=== PATIENT | male | born 1990 | race Caucasian/White ===

== ENCOUNTER 2019-09-13 13:54 | Inpatient (IN) | payer BC ==
[~2019-09-13] VITALS: Ht 180.3 cm; Wt 73.0 kg
[~2019-09-13 13:54] MED LIST: COL100 PO; NORCO1 TA2 PO
[2019-09-13 16:48] LABS: PLATELET COUNT 398 x10^3mcL (130-400); RED CELL DISTRIBUTION WIDTH 12.8 % (11.5-14.5)
[2019-09-13 17:01] LABS: CALCIUM 8.9 mg/dL (8.5-10.1); CARBON DIOXIDE 30.4 mmol/L (21-32); CHLORIDE SERUM 101 mmol/L (98-107); CREATININE SERUM 0.8 mg/dL (0.7-1.3); GFR1 > 60 mL/min; GLUCOSE SERUM 117 mg/dL (74-106); POTASSIUM SERUM 3.3 mmol/L (3.5-5.1); SODIUM SERUM 140 mmol/L (136-145)
[2019-09-13 17:05] LABS: ALBUMIN 4.2 g/dL (3.4-5.0); ALKALINE PHOSPHATASE 94 U/L (46-116); ALT/SGPT 24 U/L (16-63); AMYLASE 55 U/L (25-115); LIPASE 23 IU/L (73-393); TOTAL PROTEIN, SERUM 7.4 g/dL (6.4-8.2)
[2019-09-13 17:20] LABS: AST/SGOT 22 U/L (15-37)
[2019-09-13 17:21] LABS: BAND NEUTROPHIL 3 % (0-10); BASOPHIL 0 % (0-2); MONOCYTE 4 % (0-7); SEGMENTED NEUTROPHILS 89 % (37-75)
[2019-09-13 17:23] LABS: rbc morphology (normal/abnorm) NORMAL (NORMAL)
[2019-09-14] VITALS (11 sets, daily range): BP systolic 117–138; BP diastolic 56–93; Ht 180.3 cm; Wt 73.0 kg
[2019-09-14 06:10] LABS: microscopic required? NO
[2019-09-14 06:25] LABS: PLATELET COUNT 320 x10^3mcL (130-400); RED CELL DISTRIBUTION WIDTH 13.1 % (11.5-14.5)
[2019-09-14 06:46] LABS: CALCIUM 7.8 mg/dL (8.5-10.1); CARBON DIOXIDE 26.3 mmol/L (21-32); CHLORIDE SERUM 104 mmol/L (98-107); CREATININE SERUM 0.8 mg/dL (0.7-1.3); GFR1 > 60 mL/min; GLUCOSE SERUM 138 mg/dL (74-106); MAGNESIUM 1.6 mg/dL (1.8-2.4); PHOSPHOROUS 3.8 mg/dL (2.5-4.9); POTASSIUM SERUM 4.1 mmol/L (3.5-5.1); SODIUM SERUM 137 mmol/L (136-145)
[2019-09-14 07:40] LABS: UA SPECIFIC GRAVITY >=1.030 (1.005-1.035); urine erythrocyte NEGATIVE (NEGATIVE)
[2019-09-14 07:47] LABS: AMPHETAMINE QUAL UR POSITIVE (See below)
[2019-09-14 07:49] LABS: BAND NEUTROPHIL 3 % (0-10); MONOCYTE 3 % (0-7); SEGMENTED NEUTROPHILS 94 % (37-75)
[2019-09-14 07:50] LABS: rbc morphology (normal/abnorm) ABNORMAL (NORMAL)
[2019-09-14 07:51] LABS: PLATELET MORPHOLOGY PLATELETS NORMAL
[2019-09-15 04:55] VITALS: BP 131/82
[2019-09-15 06:36] LABS: CARBON DIOXIDE 29.5 mmol/L (21-32); CHLORIDE SERUM 104 mmol/L (98-107); CREATININE SERUM 0.9 mg/dL (0.7-1.3); GFR1 > 60 mL/min; GLUCOSE SERUM 117 mg/dL (74-106); MAGNESIUM 1.9 mg/dL (1.8-2.4); PHOSPHOROUS 2.6 mg/dL (2.5-4.9); POTASSIUM SERUM 3.6 mmol/L (3.5-5.1); SODIUM SERUM 140 mmol/L (136-145)
[2019-09-15 06:50] LABS: BASOPHIL % 0.2 % (0-2); PLATELET COUNT 322 x10^3mcL (130-400); RED CELL DISTRIBUTION WIDTH 13.7 % (11.5-14.5)
[2019-09-15 08:38] VITALS: BP 133/86
[2019-09-15 11:51] VITALS: BP 149/82
[2019-09-15 16:29] VITALS: BP 126/79
[2019-09-15 20:22] VITALS: BP 133/86
[2019-09-16 04:54] VITALS: BP 133/76
[2019-09-16 06:48] LABS: CALCIUM 8.5 mg/dL (8.5-10.1); CHLORIDE SERUM 102 mmol/L (98-107); CREATININE SERUM 0.8 mg/dL (0.7-1.3); GFR1 > 60 mL/min; GLUCOSE SERUM 119 mg/dL (74-106); MAGNESIUM 2.2 mg/dL (1.8-2.4); POTASSIUM SERUM 3.5 mmol/L (3.5-5.1); SODIUM SERUM 138 mmol/L (136-145)
[2019-09-16 07:12] LABS: PLATELET COUNT 359 x10^3mcL (130-400); RED CELL DISTRIBUTION WIDTH 13.4 % (11.5-14.5)
[2019-09-16 07:19] LABS: BASOPHIL % 0 % (0-2)
[2019-09-16 07:39] VITALS: BP 136/87
[2019-09-16 11:45] VITALS: BP 132/89
[2019-09-16 16:18] VITALS: BP 140/94
[2019-09-16 20:20] VITALS: BP 139/94
[2019-09-17 03:33] VITALS: BP 138/98
[2019-09-17 06:39] LABS: BASOPHIL % 0.1 % (0-2); PLATELET COUNT 375 x10^3mcL (130-400); RED CELL DISTRIBUTION WIDTH 13.4 % (11.5-14.5)
[2019-09-17 07:35] LABS: CALCIUM 8.6 mg/dL (8.5-10.1); CARBON DIOXIDE 27.9 mmol/L (21-32); CHLORIDE SERUM 102 mmol/L (98-107); CREATININE SERUM 0.9 mg/dL (0.7-1.3); GFR1 > 60 mL/min; GLUCOSE SERUM 123 mg/dL (74-106); PHOSPHOROUS 4.5 mg/dL (2.5-4.9); POTASSIUM SERUM 3.7 mmol/L (3.5-5.1); SODIUM SERUM 138 mmol/L (136-145)
[2019-09-17 08:01] VITALS: BP 121/77
[2019-09-17 11:58] VITALS: BP 137/89
[2019-09-17 15:59] VITALS: BP 145/97
[2019-09-17 19:26] VITALS: BP 133/87
[2019-09-18 05:23] VITALS: BP 121/79
[2019-09-18 06:29] LABS: BASOPHIL % 0.8 % (0-2); PLATELET COUNT 378 x10^3mcL (130-400); RED CELL DISTRIBUTION WIDTH 13.3 % (11.5-14.5)
[2019-09-18 06:47] LABS: CALCIUM 8.1 mg/dL (8.5-10.1); CARBON DIOXIDE 26.9 mmol/L (21-32); CHLORIDE SERUM 106 mmol/L (98-107); CREATININE SERUM 0.8 mg/dL (0.7-1.3); GFR1 > 60 mL/min; GLUCOSE SERUM 96 mg/dL (74-106); SODIUM SERUM 140 mmol/L (136-145)
[2019-09-18 07:51] VITALS: BP 121/84
[2019-09-18 11:48] VITALS: BP 137/93
[2019-09-18 16:09] VITALS: BP 126/87
[2019-09-18 19:21] VITALS: BP 131/86
[2019-09-19 04:31] VITALS: BP 137/91
[2019-09-19 05:28] LABS: BASOPHIL % 0.1 % (0-2); PLATELET COUNT 375 x10^3mcL (130-400); RED CELL DISTRIBUTION WIDTH 13.1 % (11.5-14.5)
[2019-09-19 05:30] LABS: CALCIUM 8.1 mg/dL (8.5-10.1); CARBON DIOXIDE 25.3 mmol/L (21-32); CHLORIDE SERUM 106 mmol/L (98-107); CREATININE SERUM 0.8 mg/dL (0.7-1.3); GFR1 > 60 mL/min; GLUCOSE SERUM 102 mg/dL (74-106); POTASSIUM SERUM 3.9 mmol/L (3.5-5.1); SODIUM SERUM 139 mmol/L (136-145)
[2019-09-19 08:07] VITALS: BP 116/86
[2019-09-19 11:50] VITALS: BP 125/80
[2019-09-19 17:01] VITALS: BP 131/87
[2019-09-19 21:23] VITALS: BP 136/82
[2019-09-20 04:57] VITALS: BP 132/87
[2019-09-20 06:47] LABS: CALCIUM 8.2 mg/dL (8.5-10.1); CARBON DIOXIDE 23.6 mmol/L (21-32); CHLORIDE SERUM 104 mmol/L (98-107); CREATININE SERUM 0.9 mg/dL (0.7-1.3); GFR1 > 60 mL/min; GLUCOSE SERUM 104 mg/dL (74-106); POTASSIUM SERUM 3.6 mmol/L (3.5-5.1); SODIUM SERUM 138 mmol/L (136-145)
[2019-09-20 06:48] LABS: BASOPHIL % 0.3 % (0-2); RED CELL DISTRIBUTION WIDTH 13.1 % (11.5-14.5)
[2019-09-20 06:58] LABS: PLATELET COUNT 423 x10^3mcL (130-400)
[2019-09-20 08:33] VITALS: BP 136/87
[2019-09-20 16:31] VITALS: BP 137/87
[2019-09-20 20:52] VITALS: BP 136/89
[2019-09-21 05:07] VITALS: BP 139/95
[2019-09-21 06:33] LABS: BASOPHIL % 0.5 % (0-2); RED CELL DISTRIBUTION WIDTH 13.1 % (11.5-14.5)
[2019-09-21 07:07] LABS: CALCIUM 8.6 mg/dL (8.5-10.1); CARBON DIOXIDE 27.9 mmol/L (21-32); CHLORIDE SERUM 105 mmol/L (98-107); GFR1 > 60 mL/min; GLUCOSE SERUM 104 mg/dL (74-106); MAGNESIUM 2.2 mg/dL (1.8-2.4); POTASSIUM SERUM 3.7 mmol/L (3.5-5.1); SODIUM SERUM 141 mmol/L (136-145)
[2019-09-21 07:25] VITALS: BP 140/86
[2019-09-21 07:33] LABS: PLATELET COUNT 459 x10^3mcL (130-400)
[2019-09-21 15:46] VITALS: BP 143/95
[2019-09-21 20:00] VITALS: BP 127/79
[2019-09-22 05:27] VITALS: BP 119/75
[2019-09-22 06:15] LABS: BASOPHIL % 0.4 % (0-2); RED CELL DISTRIBUTION WIDTH 13.1 % (11.5-14.5)
[2019-09-22 06:19] LABS: PLATELET COUNT 439 x10^3mcL (130-400)
[2019-09-22 06:41] LABS: CALCIUM 8.1 mg/dL (8.5-10.1); CARBON DIOXIDE 24.5 mmol/L (21-32); CHLORIDE SERUM 108 mmol/L (98-107); CREATININE SERUM 0.8 mg/dL (0.7-1.3); GFR1 > 60 mL/min; GLUCOSE SERUM 108 mg/dL (74-106); MAGNESIUM 2.2 mg/dL (1.8-2.4); POTASSIUM SERUM 3.5 mmol/L (3.5-5.1); SODIUM SERUM 143 mmol/L (136-145)
[2019-09-22 07:57] VITALS: BP 143/96
[2019-09-22 12:01] VITALS: BP 148/90
[2019-09-22 16:17] VITALS: BP 142/87
[2019-09-22 19:32] VITALS: BP 134/90
[2019-09-23 04:18] VITALS: BP 127/85
[2019-09-23 06:50] LABS: BASOPHIL % 0.6 % (0-2); RED CELL DISTRIBUTION WIDTH 13.2 % (11.5-14.5)
[2019-09-23 06:54] LABS: CALCIUM 8.1 mg/dL (8.5-10.1); CARBON DIOXIDE 27.9 mmol/L (21-32); CHLORIDE SERUM 105 mmol/L (98-107); CREATININE SERUM 0.9 mg/dL (0.7-1.3); GFR1 > 60 mL/min; POTASSIUM SERUM 3.1 mmol/L (3.5-5.1); SODIUM SERUM 142 mmol/L (136-145)
[2019-09-23 06:57] LABS: PLATELET COUNT 446 x10^3mcL (130-400)
[2019-09-23 07:28] VITALS: BP 132/87
[2019-09-23 08:56] LABS: GLUCOSE SERUM 84 mg/dL (74-106)
[2019-09-24 04:16] VITALS: BP 121/78
[2019-09-24 07:24] LABS: BASOPHIL % 0.7 % (0-2); RED CELL DISTRIBUTION WIDTH 13.1 % (11.5-14.5)
[2019-09-24 07:38] LABS: PLATELET COUNT 422 x10^3mcL (130-400)
[2019-09-24 08:00] LABS: CALCIUM 8.2 mg/dL (8.5-10.1); CARBON DIOXIDE 23.7 mmol/L (21-32); CHLORIDE SERUM 107 mmol/L (98-107); CREATININE SERUM 0.7 mg/dL (0.7-1.3); GFR1 > 60 mL/min; GLUCOSE SERUM 88 mg/dL (74-106); POTASSIUM SERUM 3.2 mmol/L (3.5-5.1); SODIUM SERUM 140 mmol/L (136-145)
[2019-09-24 08:09] VITALS: BP 103/64
[2019-09-24 10:50] VITALS: BP 103/64
[2019-09-24 16:26] VITALS: BP 106/67
[2019-09-24 20:40] VITALS: BP 121/72
[2019-09-25 04:57] VITALS: BP 108/66
[2019-09-25 06:11] LABS: CARBON DIOXIDE 26.9 mmol/L (21-32); CHLORIDE SERUM 108 mmol/L (98-107); CREATININE SERUM 0.8 mg/dL (0.7-1.3); GFR1 > 60 mL/min; GLUCOSE SERUM 91 mg/dL (74-106); POTASSIUM SERUM 3.6 mmol/L (3.5-5.1); SODIUM SERUM 141 mmol/L (136-145)
[2019-09-25 06:19] LABS: BASOPHIL % 0.6 % (0-2); RED CELL DISTRIBUTION WIDTH 13.3 % (11.5-14.5)
[2019-09-25 06:54] LABS: PLATELET COUNT 451 x10^3mcL (130-400)
[2019-09-25 08:05] VITALS: BP 118/70
[2019-09-25 09:15] VITALS: BP 118/70
== END 2019-09-25 10:20 | disposition home or self-care (01) | DRG 853 ==
LOC: ED 13:54 → DU 19:38 → MU 19:38 → DU 23:52 → MU 09-19 11:37
PROVIDERS: Emergency Medicine; Family Medicine Addiction Medicine; General Practice; ADMIT Internal Medicine
PROC: 0W9G00Z Drainage of Peritoneal Cavity with Drainage Device, Open Approach (ICD-10-PCS; 2019-09-13)
PROC: 0DU907Z Supplement Duodenum with Autologous Tissue Substitute, Open Approach (ICD-10-PCS; principal; 2019-09-13 21:00)
DX: A41.9 Sepsis, unspecified organism (principal); K65.9 Peritonitis, unspecified; K26.5 Chronic or unspecified duodenal ulcer with perforation; K91.89 Other postprocedural complications and disorders of digestive system; K56.7 Ileus, unspecified; F12.90 Cannabis use, unspecified, uncomplicated; E87.6 Hypokalemia; Z90.49 Acquired absence of other specified parts of digestive tract; Z72.89 Other problems related to lifestyle; Y83.8 Other surgical procedures as the cause of abnormal reaction of the patient, or of later complication, without mention of misadventure at the time of the procedure
CPT/HCPCS: 82962; 94150; 97530-GP; C9113; G0378; J0330; J0694; J1170; J1580; J1644; J2270; J2405; J2543; J2704; J2710; J2765; J3010; J3475; J3480; J3490; J7030; J7042; J7050; J7120; J7131; Q0092; Q9966; Q9967; Q9968